=== PATIENT | female | born 1940 | race African-American/Black ===

== ENCOUNTER 2019-01-28 19:55 | Emergency (ER) | payer OTHER ==
[~2019-01-28] VITALS: Ht 170.2 cm; Wt 65.8 kg
[2019-01-28] MEDS ORDERED: MIDAZOLAM DRIP 50 mg/50mL 50 ML IV ONE (20:01)
[2019-01-28] MEDS ORDERED: SODIUM CHLORIDE 0.9% 1,000 ML IV ONE (20:14)
[2019-01-28] MEDS ORDERED: PROPOFOL 100 ML IV SCH (20:19)
[2019-01-28] MEDS ORDERED: PROPOFOL 0 ML IV ONE (20:24)
[2019-01-28] MEDS ORDERED: PROPOFOL 100 ML IV ONE (20:27)
[2019-01-28] MEDS ORDERED: MIDAZOLAM DRIP 50 mg/50mL 50 ML IV SCH (20:28)
[2019-01-28] MEDS ORDERED: SUCCINYLCHOLINE CHLORIDE 20 MG/ML 10ML VIAL IV ONE (20:30)
[2019-01-28] MEDS ORDERED: ETOMIDATE (2MG/ML) 20ML VIAL IV ONE (20:30)
[2019-01-28 21:03] LABS: Basophils # (auto) 0 uL; Basophils % (auto) 0.3 % (0.0-2.0); Eosinophils # (auto) 0.2 uL; Eosinophils % (auto) 1.7 % (0.0-7.0); Hematocrit 39.2 % (36.0-46.0); Hemoglobin 12.6 g/dL (12.2-16.2); Lymphocytes # (auto) 6.6 uL; Lymphocytes % (auto) 47.4 % (10.0-50.0); Mean Corpuscular Hemoglobin 30.1 pg (28.0-32.0); Mean Corpuscular Hgb Conc. 32.1 g/dL (32.0-36.0); Mean Corpuscular Volume 93.7 fL (80.0-100.0); Monocytes % (auto) 6.9 % (0.0-12.0); Neutrophils # (auto) 6.1 uL; Neutrophils % (auto) 43.7 % (37.0-80.0); Nucleated Red Blood Cells % 0.1 %; Platelet Count (auto) 210 10^3/uL (140-450); Red Blood Cells 4.18 10^6/uL (4.0-5.20); Red Cell Distribution Width 13.5 % (11.8-14.3); White Blood Cell 13.9 10^3/uL (4.4-10.8)
[2019-01-28 21:13] LABS: Urine Bacteria NONE SEEN /hpf (None Seen); Urine Blood TRACE /uL (Negative); Urine Hyaline Cast FEW /lpf (0 - 2); Urine Specific Gravity 1.012 (1.001-1.035); Urine WBC 1 /hpf (0 - 5)
[2019-01-28 21:19] LABS: Albumin 3.5 g/dL (3.4-5.0); Calcium 8.5 mg/dL (8.5-10.1); INR 1.03 (0.9-1.15); Magnesium 2.1 mg/dL (1.6-2.6); Partial Thromboplastin Time 22.9 sec (23.64-32.05); Potassium 3.9 mmol/L (3.5-5.1)
[2019-01-28 21:25] LABS: Bilirubin, Total 0.4 mg/dL (0.2-1.0); Total Protein 7.5 g/dL (6.4-8.2)
[2019-01-28] MEDS ORDERED: DexAMETHasone SOD PHOS 10MG/1ML VIAL INJ IV ONE (22:15)
[2019-01-28] MEDS ORDERED: MANNITOL 20% SOLN 100 gm/500ml 250 ML IV ONE (22:15)
[2019-01-28] MEDS ORDERED: MANNITOL 20 % (20GM/100ML) 500 ML IV ONE (22:32)
[2019-01-29] MEDS ORDERED: PHENYTOIN SODIUM 50 MG/ML 5ML INJ VIAL IV ONE (00:13)
[2019-01-29] MEDS ORDERED: PHENYTOIN SODIUM 50 MG/ML 2ML VIAL IV ONE ×3 (00:14→00:16)
[2019-01-29] MEDS ORDERED: PHENYTOIN IV DILANTIN 1,000 MG in SODIUM CHL 0.9% 250 ML IV ONE (00:15)
[2019-01-29] MEDS ORDERED: NOREPINEPHRINE 8 MG/250ML KIT 250 ML IV ONE (00:50)
[2019-01-29] MEDS ORDERED: NOREPINEPHRINE 8 MG/250ML KIT 250 ML IV SCH (00:51)
[2019-01-29 01:06] VITALS: BP 128/58
== END 2019-01-28 22:41 | disposition short-term general hospital (02) ==
LOC: EDBD 19:55 → ER 20:11
DX: R41.82 Altered mental status, unspecified (principal); I62.00 Nontraumatic subdural hemorrhage, unspecified; I61.9 Nontraumatic intracerebral hemorrhage, unspecified; E11.65 Type 2 diabetes mellitus with hyperglycemia; J96.00 Acute respiratory failure, unspecified whether with hypoxia or hypercapnia
CPT/HCPCS: 31500; 36415; 36600; 70450; 71045; 72125; 80053; 81001; 82805; 83735; 84484; 85025; 85610; 85730; 87070; 87205; 93005; 94761; 96365; 96367; 96375; 99285; J1100; J2250; J2704; 94002